=== PATIENT | female | born 1985 | race Caucasian/White ===

== ENCOUNTER 2017-02-22 20:20 | Emergency (ER) | payer BC ==
[2017-02-22 21:14] VITALS: BP 149/94
[2017-02-22] MEDS ORDERED: Ketorolac 30 MG/ML SDV IM ONE (21:48)
--- NOTE | 2017-02-22 21:55 | EDM.PDOC ---
ED HPI GENERAL MEDICAL PROBLEM - General Chief Complaint: Neck Problem Stated Complaint: NECK PAIN [id number] Time Seen by Provider: 02/22/17 21:42 Source of Information: Reports: Patient History Limitations: Reports: No Limitations - History of Present Illness INITIAL COMMENTS - FREE TEXT/NARRATIVE: few days h/o left neck pain without trauma. tried to massage it but not working well. denies paeresthesia/paeresis to arms-legs. Treatments PEN TENDER: Reports: NSAIDS Left Neck Pain Score (Numeric/FACES): 8 - Related Data Allergies Allergy/AdvReac Type Severity Reaction Status Date / Time codeine Allergy Nausea and Verified 02/22/17 21:08 Vomiting fluoxetine HCl [From Prozac] Allergy Difficulty Verified 02/22/17 21:08 Breathing morphine Allergy Hives Verified 02/22/17 21:08 Home Meds: Home Meds Naproxen Sodium [Aleve] 440 mg PO ASDIRECTED PRN 12/10/15 [History] Venlafaxine HCl [Venlafaxine ER] 75 mg PO DAILY 12/10/15 [History] Ibuprofen [Advil] 2 tab PO Q6H PRN 02/22/17 [History] Norethindrone [Norethindrone] 1 tab PO DAILY 02/22/17 [History] Past Medical History Cardiovascular History: Reports: None Respiratory History: Reports: PE Gastrointestinal History: Reports: None Genitourinary History: Reports: None 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: Other OB/BYN History: patient states that she is 34.5 weeks Musculoskeletal History: Reports: None Neurological History: Reports: None Psychiatric History: Reports: Anxiety, Depression Endocrine/Metabolic History: Reports: None Hematologic History: Reports: None Immunologic History: Reports: None Oncologic (Cancer) History: Reports: None Dermatologic History: Reports: None - Infectious Disease History Infectious Disease History: Reports: Chicken Pox - Past Surgical History Head Surgeries/Procedures: Reports: None HEENT Surgical History: Reports: Adenoidectomy, Myringotomy w Tube(s), Tonsillectomy Social & Family History - Family History Family Medical History: Noncontributory - Tobacco Use Smoking Status *Q: Former Smoker Years of Tobacco use: 10 Packs/Tins Daily: 0.5 Used Tobacco, but Quit: Yes Month Tobacco Last Used: Second Hand Smoke Exposure: No - Caffeine Use Caffeine Use: Reports: Soda - Alcohol Use Days Per Week of Alcohol Use: 1 Number of Drinks Per Day: 2 Total Drinks Per Week: 2 - Recreational Drug Use Recreational Drug Use: No ED ROS GENERAL - Review of Systems Review Of Systems: ROS reveals no pertinent complaints other than HPI. ED EXAM, UPPER BACK/NECK PAIN - Physical Exam Exam: See Below Exam Limited By: No Limitations General Appearance: Alert, WD/WN, No Apparent Distress Eye Exam: Bilateral Eye: PERRL (pupils ER @ 4mm) Ears Exam: Hearing Grossly Normal Throat/Mouth Exam: Normal Teeth, Normal Voice Head Exam: Atraumatic Neck Exam: Full Range of Motion, Normal Alignment, Normal Inspection, Muscle Spasm, Paraspinous Muscle Tender, Stiff Neck, Other (left). No: Spinous Processes Tender, Tender Midline Nexus Criteria: No: Posterior, Midline Cervical Tenderness, Evidence of Intoxication, Altered Level of Consciousness, Focal Neurological Deficit, Painful Distraction Injuries Cardiovascular/Respiratory: Regular Rate, Rhythm, No Respiratory Distress GI/Abdominal: Soft, Non-Tender Neurologic: No Motor/Sensory Deficits, Alert, Normal Mood/Affect, Oriented x 3 Psychiatric: Normal Affect, Normal Mood Skin Exam: Normal Color, Warm/Dry Lymphatic: No Adenopathy Course - Vital Signs Last Recorded V/S: Last Vital Signs Temp 36.6 C 02/22/17 21:10 Pulse 103 H 02/22/17 21:10 Resp 20 02/22/17 21:10 BP 149/94 H 02/22/17 21:10 Pulse Ox 99 02/22/17 21:10 - Orders/Labs/Meds Meds: Medications Discontinued Medications Generic Name Dose Route Start Last Admin Trade Name Mik PRN Reason Stop Dose Admin Ketorolac Tromethamine 30 mg 02/22/17 21:48 Toradol IM 02/22/17 21:49 ONETIME ONE Departure - Departure Time of Disposition: 21:53 Disposition: Home, Self-Care 01 Condition: Good Clinical Impression: Spasm of cervical paraspinous muscle - Discharge Information Instructions: Cervical Sprain, [id number] Additional Instructions: 1) rest 2) avoid bending lifting straining next 48 hours 3) wear collar for comfort 4) try heat to sore area 5) see family doctor for possible TENS UNIT or PT 6) recheck if there is any change or concern rx given; flexeril 10mg bid prn spasms x 12 vicodin 5/325mg bid prn pain x 12
== END 2017-02-22 22:00 | disposition home or self-care (01) ==
LOC: DL.ED 20:20
DX: M62.838 Other muscle spasm (principal); F32.9 Major depressive disorder, single episode, unspecified; Z87.891 Personal history of nicotine dependence; Z88.5 Allergy status to narcotic agent; Z88.8 Allergy status to other drugs, medicaments and biological substances
CPT/HCPCS: 96372; 99282; J1885